=== PATIENT | female | born 1985 | race Caucasian/White ===

== ENCOUNTER 2021-05-10 15:46 | Emergency (ER) | payer OTHER ==
[~2021-05-10] VITALS: Ht 167.6 cm; Wt 99.8 kg
[2021-05-10] MEDS ORDERED: DUI500 PO (18:16)
== END 2021-05-10 18:24 | disposition home or self-care (01) ==
LOC: ER 15:46
DX: S91.121A Laceration with foreign body of right great toe without damage to nail, initial encounter (principal); W45.8XXA Other foreign body or object entering through skin, initial encounter; Y93.89 Activity, other specified; Y92.512 Supermarket, store or market as the place of occurrence of the external cause; Y99.8 Other external cause status

== ENCOUNTER 2021-05-16 08:48 | Emergency (ER) | payer OTHER ==
[~2021-05-16] VITALS: Ht 167.6 cm; Wt 99.8 kg
[~2021-05-16 08:48] MED LIST: DUI500 PO
== END 2021-05-16 10:03 | disposition home or self-care (01) ==
LOC: ER 08:48
DX: Z48.02 Encounter for removal of sutures (principal)